=== PATIENT | female | born 1990 | race Caucasian/White ===

== ENCOUNTER 2017-11-12 09:43 | Emergency (ER) | payer OTHER ==
[2017-11-12] MEDS ORDERED: SODIUM CHLORIDE 0.9% 500 ML IV ONE (10:18)
[2017-11-12] MEDS ORDERED: 0.9 % SODIUM CHLORIDE 1000ML 1,000 ML IV PRN (10:18)
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
[2017-11-12 10:47] LABS: BASO % 0.2 % (0-6); GRAN % 71.3 % (47-80); HEMATOCRIT 35.5 % (35.0-47.0); HEMOGLOBIN 11.2 gm/dl (11.6-16.0); LYMPH % 23.2 % (16-45); MEAN CELL VOLUME 92.4 fl (81-97); MEAN CORPUSCULAR HGB CONC 31.5 g/dl (32-36); MONO % 4.3 % (0-9); PLATELET COUNT 168 K/uL (130-400); RED BLOOD COUNT 3.84 M/uL (3.80-5.40); RED CELL DISTRIBUTION WIDTH 12.7 % (11.5-14.5); WHITE BLOOD COUNT W/O DIFF 5.1 K/uL (4.2-12.2)
[2017-11-12 10:48] LABS: MEAN CORPUSCULAR HEMOGLOBIN 29.1 pg (27-33)
[2017-11-12 11:02] LABS: BLOOD UREA NITROGEN 15 mg/dL (6-20); CREATININE 0.7 mg/dL (0.5-0.9); EST GLOMERULAR FILTRATION RATE > 60 mL/min
[2017-11-12 11:03] LABS: TOTAL PROTEIN 6.6 g/dL (6.6-8.7)
[2017-11-12 11:05] LABS: GLUCOSE,RANDOM 92 mg/dL (74-109)
[2017-11-12 11:07] LABS: ALT/SGPT 10 U/L (<33)
[2017-11-12 11:08] LABS: ALB/GLOB RATIO 1.8 (1.1-1.8); ALBUMIN 4.2 g/dL (4.0-5.0); ALKALINE PHOSPHATASE 35 U/L (35-104); AST/SGOT 14 U/L (10.0-35.0)
[2017-11-12 11:47] LABS: URINE APPEARANCE CLEAR; URINE BILIRUBIN NEGATIVE (NEGATIVE); URINE BLOOD NEGATIVE (NEGATIVE); URINE COLOR YELLOW; URINE GLUCOSE (UA) NEGATIVE (NEGATIVE); URINE KETONE NEGATIVE (NEGATIVE); URINE LEUKOCYTE ESTERASE NEGATIVE (NEGATIVE); URINE NITRITE NEGATIVE (NEGATIVE); URINE PROTEIN NEGATIVE (NEGATIVE); URINE UROBILINOGEN 0.2 E.U./dL (0.20 - 1.00)
[2017-11-12 12:36] LABS: HCG,QUALITATIVE URINE NEGATIVE (NEGATIVE)
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
== END 2017-11-12 12:24 | disposition home or self-care (01) ==
LOC: ER 09:43
DX: G89.11 Acute pain due to trauma (principal); R10.13 Epigastric pain; R07.89 Other chest pain; V43.52XA Car driver injured in collision with other type car in traffic accident, initial encounter
CPT/HCPCS: 74177; 80053; 81003; 81025; 85025; 99284